=== PATIENT | female | born 1995 | race African-American/Black ===

== ENCOUNTER 2017-11-26 00:01 | Emergency (ER) | payer OTHER ==
[~2017-11-26] VITALS: Ht 172.7 cm; Wt 138.6 kg
[2017-11-26 00:06] VITALS: Ht 172.7 cm; Wt 138.6 kg
[2017-11-26] MEDS ORDERED: SODIUM CHLORIDE 0.9% 1000ML 1,000 ML IV STA (00:33)
[2017-11-26 00:59] LABS: BASO % 0.2 %; BASO ABS # 0.01 K/uL (0-0.2); EOS % 0.9 %; EOS ABS # 0.05 K/uL (0-0.5); HEMATOCRIT 37.8 % (37-47); HEMOGLOBIN 12.7 g/dL (12.0-16.0); IG# 0.01 K/uL (0.00-0.02); LYMPH % 49.9 %; MEAN CELL VOLUME 77.9 fL (80-100); MEAN CORPUSCULAR HEMOGLOBIN 26.2 pg (25-34); MEAN CORPUSCULAR HGB CONC 33.6 g/dl (32-36); MEAN PLATELET VOLUME 9.7 fL (7.4-10.4); MONO % 4.8 %; MONO ABS # 0.26 K/uL (0.11-0.59); NEUT ABS # 2.38 K/uL (1.4-6.5); PLATELET COUNT 323 K/uL (130-400); RED CELL DISTRIBUTION WIDTH SD 42.6 fL (36.4-46.3); WHITE BLOOD COUNT 5.41 K/uL (4.8-10.8)
--- NOTE | 2017-11-26 01:04 | EMERGENCY ROOM VISIT NOTE ---
History Report prepared by Angelica: Beatriz Butler Under the Supervision of: Dr. Guadalupe Gomez D.O. First contact with patient: 00:14 Chief Complaint: HYPERTENSION Stated Complaint: KIDNEY PAIN AND HIGH BLOOD PRESSURE History of Present Illness The patient is a 22 year old female who presents to the Emergency Room with complaints of persistent lower back pain starting 3 weeks ago. The patient has a history of hypertension and polycystic kidney disease. She spoke with her counter dish carrier who recommended she come to the ED. She is having bilateral lower back pain which she describes as achy pressure. She has been taking Tylenol for her back pain to some relief. She started having diarrhea and dark urine 2 weeks ago. She states she thought she was dehydrated. She is having 4 bowel movements a day. Her urine smells stronger. She reports high blood pressure and lightheadedness. She has had some intermittent sharp chest pain which resolves with Tylenol. She has some arm pain with her chest pain. The last time she had the pain it lasted for 30 minutes. She denies any blood in her stool, fever, chills, abdominal pain, swelling, cough, or SOB. She denies any history of heart problems. She denies any sick contacts. She has a history of hypertension. She is on losartan, HCTZ, and amlodipine. She is taking her medications as directed. She denies any changes in medication, diet, food, or recent travel. No trauma or change in activity. Source of History: patient Onset: 3 weeks ago Position: back (lower) Quality: ache, pressure Timing: other (persistent) Modifying Factors (Relieving): tylenol Associated Symptoms: + chest pain, + diarrhea, + urinary symptoms, No fevers , No chills, No cough, No SOB, No abdominal pain, No hematochezia Note: Pt reports high blood pressure, lightheadedness. Review of Systems See HPI for pertinent positives & negatives. A total of 10 systems reviewed and were otherwise negative. Past Medical & Surgical Medical Problems: (1) Hypertension (2) Polycystic kidney disease Family History Hypertension Social History Smoking Status: Never Smoker Occupation Status: [employer] student Physical Exam Vital Signs Date Time Temp Pulse Resp B/P (MAP) Pulse Ox O2 Delivery O2 Flow Rate FiO2 11/26/17 03:30 11/26/17 03:03 36.7 60 18 153/88 100 Room Air 11/26/17 01:27 59 18 154/89 100 Room Air 11/26/17 00:06 36.9 65 20 160/100 98 Room Air Physical Exam GENERAL: obese, alert, well appearing, well nourished, no distress, non-toxic EYE EXAM: normal conjunctiva, PERRL and EOM's grossly intact OROPHARYNX: no exudate, no erythema, lips, buccal mucosa, and tongue normal and mucous membranes are moist NECK: supple, no nuchal rigidity, no adenopathy, non-tender LUNGS: Clear to auscultation. Normal chest wall mechanics HEART: no murmurs, S1 normal and S2 normal ABDOMEN: abdomen soft, non-tender, normo-active bowel sounds, no masses, no rebound or guarding. BACK: Back is symmetrical on inspection and there is no deformity, no midline tenderness, no CVA tenderness. Mild bilateral lower back tenderness. SKIN: no rashes and no bruising UPPER EXTREMITIES: upper extremities are grossly normal. LOWER EXTREMITIES: No pitting edema. NEURO EXAM: Normal sensorium, cranial nerves II-XII grossly intact, normal speech, no gross weakness of arms, no gross weakness of legs. Medical Decision & Procedures ER Provider Diagnostic Interpretation: X-ray: I interpreted the following studies. Chest: Negative for cardiomegaly, focal infiltrate, effusion, pulmonary edema, or wide mediastinum. KUB: Scattered stool, no small bowel obstruction, no free air. Radiology results have been interpreted by the [facility] radiologist and reviewed by me. US Renal: Innumerable bilateral renal cysts, the largest in the right kidney measuring 4.3 cm. Bilateral renal pelviectasis. Bilateral bladder jets visualized. Laboratory Results 11/26/17 00:50 Red Blood Count 4.85, Mean Corpuscular Volume 77.9, Mean Corpuscular Hemoglobin 26.2, Mean Corpuscular Hemoglobin Concent 33.6, Mean Platelet Volume 9.7, Neutrophils (%) (Auto) 44.0, Lymphocytes (%) (Auto) 49.9, Monocytes (%) (Auto) 4.8, Eosinophils (%) (Auto) 0.9, Basophils (%) (Auto) 0.2, Neutrophils # (Auto) 2.38, Lymphocytes # (Auto) 2.70, Monocytes # (Auto) 0.26, Eosinophils # (Auto) 0.05, Basophils # (Auto) 0.01 11/26/17 00:50 Test 11/26/17 00:31 11/26/17 00:50 Urine Color YELLOW Urine Appearance CLOUDY (CLEAR) Urine pH 5.5 (4.5-7.5) Urine Specific [place] 1.026 (1.000-1.030) Urine Protein NEG (NEG) Urine Glucose (UA) NEG (NEG) Urine Ketones NEG (NEG) Urine Occult Blood NEG (NEG) Urine Nitrite NEG (NEG) Urine Bilirubin NEG (NEG) Urine Urobilinogen NEG (NEG) Urine Leukocyte Esterase MODERATE (NEG) Urine WBC (Auto) 5-10 /hpf (0-5) Urine RBC (Auto) 0-4 /hpf (0-4) Urine Hyaline Casts (Auto) 0 /lpf (0-5) Urine Epithelial Cells (Auto) >30 /lpf (0-5) Urine Bacteria (Auto) 1+ (NEG) Urine Mucus PRESENT (NONE PRSENT) White Blood Count 5.41 K/uL (4.8-10.8) Red Blood Count 4.85 M/uL (4.2-5.4) Hemoglobin 12.7 g/dL (12.0-16.0) Hematocrit 37.8 % (37-47) Mean Corpuscular Volume 77.9 fL (80-100) Mean Corpuscular Hemoglobin 26.2 pg (25-34) Mean Corpuscular Hemoglobin Concent 33.6 g/dl (32-36) Platelet Count 323 K/uL (130-400) Mean Platelet Volume 9.7 fL (7.4-10.4) Neutrophils (%) (Auto) 44.0 % Lymphocytes (%) (Auto) 49.9 % Monocytes (%) (Auto) 4.8 % Eosinophils (%) (Auto) 0.9 % Basophils (%) (Auto) 0.2 % Neutrophils # (Auto) 2.38 K/uL (1.4-6.5) Lymphocytes # (Auto) 2.70 K/uL (1.2-3.4) Monocytes # (Auto) 0.26 K/uL (0.11-0.59) Eosinophils # (Auto) 0.05 K/uL (0-0.5) Basophils # (Auto) 0.01 K/uL (0-0.2) RDW Standard Deviation 42.6 fL (36.4-46.3) RDW Coefficient of Variation 15.0 % (11.5-14.5) Immature Granulocyte % (Auto) 0.2 % Immature Granulocyte # (Auto) 0.01 K/uL (0.00-0.02) Prothrombin Time 10.3 SECONDS (9.0-12.0) Prothromb Time International Ratio 1.0 (0.9-1.1) Anion Gap 7.0 mmol/L (3-11) Est Creatinine Clear Calc Drug Dose 160.0 ml/min Estimated GFR () 117.7 Estimated GFR (Non- 101.5 BUN/Creatinine Ratio 13.5 (10-20) Calcium Level 9.0 mg/dl (8.5-10.1) Phosphorus Level 3.4 mg/dl (2.5-4.9) Magnesium Level 2.1 mg/dl (1.8-2.4) Total Bilirubin 0.2 mg/dl (0.2-1) Aspartate Amino Transf (AST/SGOT) 15 U/L (15-37) Alanine Aminotransferase (ALT/SGPT) 27 U/L (12-78) Alkaline Phosphatase 60 U/L (45-117) Troponin I < 0.015 ng/ml (0-0.045) Pro-B-Type Natriuretic Peptide 7 pg/ml (0-450) Total Protein 8.0 gm/dl (6.4-8.2) Albumin 4.0 gm/dl (3.4-5.0) Globulin 4.0 gm/dl (2.5-4.0) Albumin/Globulin Ratio 1.0 (0.9-2) Thyroid Stimulating Hormone (TSH) 3.860 uIu/ml (0.300-4.500) Human Chorionic Gonadotropin, Qual NEG (NEG) Laboratory results per my review. Medications Administered Medications (Trade) Dose Ordered Sig/Sangeetha Route Start Time Stop Time Status Last Admin Dose Admin Sodium Chloride 1,000 ml @ 999 mls/hr Q1H1M STAT IV 11/26/17 00:33 11/26/17 01:33 DC 11/26/17 00:54 999 MLS/HR Acetaminophen (Tylenol Tab) 1,000 mg NOW STAT PO 11/26/17 03:13 11/26/17 03:14 DC 11/26/17 03:20 1,000 MG ECG Per My Interpretation Indication: chest pain Rate (beats per minute): 66 Rhythm: sinus rhythm Findings: no acute ischemic change, no ectopy, other (normal axis, normal intervals, no evidence of LVH) ED Course 0015: The patient was evaluated in room C9. A complete history and physical exam was performed. 0033: NSS 1000 ml @ 999 mls/hr IV. 0212: The patient is at ultrasound. 0309: I reevaluated the patient. I updated her on the results. 0313: Acetaminophen 1000 mg PO. 0332: Upon reevaluation, the patient is feeling better. I discussed the findings and the treatment plan with the patient. She verbalizes agreement and understanding. She was discharged home. Medical Decision Differential diagnosis: Etiologies such as musculoskeletal, disc herniation, fracture, aortic disease, metastatic disease, cord compression, discitis, infection, renal colic, gastrointestinal, acute exacerbation of chronic back pain, sciatica, cauda equina, as well as others were entertained. Patient well-appearing here throughout despite complaints. Patient with mild hypertension noted, however I do not suspect hypertensive urgency and no evidence of endorgan damage to suggest emergency. Patient did not appear to be in any distress and initially refused Tylenol. Labs reassuring, UA suboptimal and I feel unlikely consistent with evolving urinary tract infection. Patient with no episodes of diarrhea while here. Given patient's age discussed with her risks and benefits of different modalities of imaging. Opted for x-rays and ultrasound to minimize radiation exposure. Patient was agreeable with this plan. Discussed possible limitations. Renal ultrasound reassuring and consistent with known history of polycystic kidney disease. Discussed with her close follow-up with counter dish carrier whom she had previously contacted regarding her blood pressure numbers. Advised to continue her usual medications and drink plenty of fluid. Discussed with her symptoms to watch and return for, she verbalized understanding was agreeable with plan. Patient tolerating p.o., well-appearing, in bili with a steady gait at time of discharge. I do not suspect other concerning cardiac or pulmonary etiology for her intermittent chest pain. This seems consistent with prior episodes, EKG reassuring. Doubt vascular etiology. Unclear etiology of diarrhea, more likely viral syndrome or diet given lack of travel or medication change. No fever or leukocytosis to otherwise suggest evolving infectious diarrhea. Medication Reconcilliation Current Medication List: was personally reviewed by me Blood Pressure Screening Patient's blood pressure: Elevated blood pressure Blood pressure disposition: Referred to PCP Impression Primary Impression: Back pain Additional Impressions: Diarrhea Hypertension Polycystic kidney disease Scribe Attestation The scribe's documentation has been prepared under my direction and personally reviewed by me in its entirety. I confirm that the note above accurately reflects all work, treatment, procedures, and medical decision making performed by me. Departure Information Dispostion Home / Self-Care Referrals No Doctor, Assigned (PCP) Patient Instructions My [facility] Additional Instructions Please call your kidney doctor today to discuss your recent symptoms. Please discuss with them your blood pressure as they may wish to make changes to your blood pressure medications. If you develop worsening pain, increased diarrhea, are unable to urinate, noticed blood in your urine, develop fevers or chills, dizziness, abdominal pain, develop chest pain or trouble breathing, develop leg swelling, you have any other new concerns, please return the emergency room. Problem Qualifiers Primary Impression: Back pain Back pain location: low back pain Chronicity: chronic Back pain laterality : bilateral Sciatica presence: without sciatica Qualified Codes: M54.5 - Low back pain; G89.29 - Other chronic pain Additional Impressions: Diarrhea Diarrhea type: unspecified type Qualified Codes: R19.7 - Diarrhea, unspecified Hypertension Hypertension type: renovascular hypertension Qualified Codes: I15.0 - Renovascular hypertension
[2017-11-26 01:19] LABS: ALT/SGPT 27 U/L (12-78); AST/SGOT 15 U/L (15-37); BLOOD UREA NITROGEN 11 mg/dl (7-18); CARBON DIOXIDE 27 mmol/L (21-32); CREATININE 0.83 mg/dl (0.60-1.20); GLUCOSE 93 mg/dl (70-99); POTASSIUM 3.6 mmol/L (3.5-5.1); SODIUM 138 mmol/L (136-145)
[2017-11-26 01:30] LABS: ALKALINE PHOSPHATASE 60 U/L (45-117); PHOSPHORUS 3.4 mg/dl (2.5-4.9)
[2017-11-26 03:03] VITALS: BP 153/88; PULSE 60; TEMP 36.7; O2SAT 100
[2017-11-26] MEDS ORDERED: ACETAMINOPHEN 500 MG TAB PO STA (03:13)
--- NOTE | 2017-11-26 06:44 | DIAGNOSTIC IMAGING REPORT ---
CHEST ONE VIEW PORTABLE HISTORY: 22 years-old Female chest pain acute atypical chest pain COMPARISON: KUB of same day TECHNIQUE: Portable AP view of the chest FINDINGS: Cardiomediastinal and hilar silhouettes are within normal limits. There is no pneumothorax, pleural effusion, focal airspace consolidation or overt pulmonary edema. The bones of the chest appear grossly intact. IMPRESSION: No acute process. The above report was generated using voice recognition software. It may contain grammatical, syntax or spelling errors. Electronically signed by: Edu Villatoro M.D. 11/26/2017 6:43 AM Dictated Date/Time: 11/26/2017 6:42 AM
--- NOTE | 2017-11-26 06:55 | DIAGNOSTIC IMAGING REPORT ---
(RENAL)RETROPERITON COMP HISTORY: 22 years-old Female back pain, hx PCK acute back pain with history of polycystic kidney disease COMPARISON: KUB of same day TECHNIQUE: Multiple real-time sonographic images of the kidneys and urinary bladder were obtained assessing grayscale appearance and color flow FINDINGS: The right kidney measures 15.8 x 6.4 x 6.9 cm. Innumerable cysts are noted on the right, largest measuring 4.3 cm. Mild pelvocaliectasis without renal calculi or sheryl hydronephrosis. The left kidney measures 15.7 x 8.0 x 6.0 cm. Numerable cysts are noted on the left, largest measuring up to 2.8 cm. Mild pelvocaliectasis without renal calculi or sheryl hydronephrosis. Urinary bladder is unremarkable with bilateral ureteral jets documented. IMPRESSION: 1. Innumerable bilateral renal cysts compatible with autosomal dominant polycystic kidney disease. 2. Mild bilateral pelvocaliectasis without renal calculi or sheryl hydronephrosis. 3. Unremarkable sonographic appearance of the urinary bladder. The above report was generated using voice recognition software. It may contain grammatical, syntax or spelling errors. Electronically signed by: Edu Villatoro M.D. 11/26/2017 6:53 AM Dictated Date/Time: 11/26/2017 6:50 AM
--- NOTE | 2017-11-26 07:34 | DIAGNOSTIC IMAGING REPORT ---
KUB HISTORY: diarrhea COMPARISON: None. FINDINGS: The bowel gas pattern is unremarkable. There are no dilated loops of small bowel to suggest an obstruction. No renal calculi. No ureteral calculi. No pneumoperitoneum or pneumatosis. IMPRESSION: Unremarkable bowel gas pattern. No evidence for bowel obstruction. Electronically signed by: James Savage M.D. 11/26/2017 7:32 AM Dictated Date/Time: 11/26/2017 7:31 AM
== END 2017-11-26 03:47 | disposition home or self-care (01) ==
LOC: C.EDB 00:03
DX: M54.5 Low back pain (principal); R19.7 Diarrhea, unspecified; I15.0 Renovascular hypertension; Q61.3 Polycystic kidney, unspecified; Z82.49 Family history of ischemic heart disease and other diseases of the circulatory system